=== PATIENT | female | born 1945 | race Two or more races ===

== ENCOUNTER 2018-07-04 09:17 | Outpatient (CLI) | payer MEDICARE, MEDICAID ==
[~2018-07-04] VITALS: Ht 144.8 cm; Wt 64.4 kg
[2018-07-04 09:48] VITALS: BP 129/63
--- NOTE | 2018-07-04 16:30 | Consultation ---
DATE OF CONSULTATION: 07/04/2018 CONSULTING PHYSICIAN: Cl Fernandez M.D. REFERRING PHYSICIAN: Terry Mendez M.D. CHIEF COMPLAINT: Screening colonoscopy and chronic GERD. HISTORY OF PRESENT ILLNESS: This is a pleasant 73-year-old female, who was referred to us for evaluation of chronic GERD and screening colonoscopy. At this time, the patient is asymptomatic except for GERD. PAST MEDICAL HISTORY: 1. Hypercholesterolemia. 2. GERD. 3. Hypertension. 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 MEDICATIONS: She is on omeprazole, metoprolol, and amlodipine. ALLERGIES: She has allergy to cholesterol medication. It gave her some rash, but she does not remember what the name of the medication. FAMILY HISTORY: No family history of GI malignancies. SOCIAL HISTORY: The patient denies any tobacco, alcohol, or illicit drug abuse. PHYSICAL EXAMINATION: VITAL SIGNS: Temperature 97, pulse is 86, and respiration is 20. HEENT: Normocephalic and atraumatic. Sclerae anicteric. NECK: Supple. No obvious evidence of lymphadenopathy. CARDIOVASCULAR: Regular rate. Plus S1 and S2. LUNGS: Clear to auscultation bilaterally. ABDOMEN: Positive bowel sounds. Soft and nontender. No rebound. No guarding. No peritoneal sign. EXTREMITIES: No cyanosis, no clubbing, and no edema. ASSESSMENT AND PLAN: This is a pleasant 73-year-old female, need screening colonoscopy evaluation. Also, the patient has chronic GERD, on PPI, which needed endoscopy evaluation. The risks and benefits of the procedure was explained to the patient, she understood. She was given instruction and prescription for colonoscopy prep. The patient is scheduled for 07/17/2018 at 7 a.m. at [facility]. I want to thank, Dr. Mendez, for this kind referral. Cl Fernandez M.D. DR: DAVID JOB#: [id number] CC: Terry Mendez M.D.; Fax#: [phone]
[2018-07-05] MEDS ORDERED: OMEPRAZOLE40 M1 ORAL (08:22)
[2018-07-05] MEDS ORDERED: cholesterol med (08:22)
[2018-07-05] MEDS ORDERED: AMLODIPINE BESYL5 MG ORAL (08:22)
[2018-07-05] MEDS ORDERED: METOPROLOL SUCC50 MG ORAL (08:22)
== END 2018-07-04 11:17 | disposition home or self-care (01) ==
LOC: PAN 09:17
DX: K21.9 Gastro-esophageal reflux disease without esophagitis (principal); E78.00 Pure hypercholesterolemia, unspecified; I10 Essential (primary) hypertension

== ENCOUNTER 2018-07-17 08:10 | Day surgery (SDC) | payer MEDICARE, MEDICAID ==
[~2018-07-17] VITALS: Ht 147.3 cm; Wt 63.5 kg
[2018-07-17] VITALS (9 sets, daily range): BP systolic 114–146; BP diastolic 54–86
[~2018-07-17 08:10] MED LIST: AMLODIPINE BESYL5 MG ORAL; LR 1000ml ONE; Lidocaine 1% MPF 10mg/ml 5ml ONE; METOPROLOL SUCC50 MG ORAL; OMEPRAZOLE40 M1 ORAL; Propofol 200mg/20ml IV ONE; cholesterol med
--- NOTE | 2018-07-17 08:45 | Anethesia Preoperative Eval ---
Anesthesia Pre-op PMH/ROS General Date of Evaluation: Jul 17, 2018 Anesthesiologist: Anderson ASA Score: ASA 2 Mallampati Score Class I : Soft palate, uvula, fauces, pillars visible Class II: Soft palate, uvula, fauces visible Class III: Soft palate, base of uvula visible Class IV: Only hard plate visible Mallampati Classification: Class II Surgeon: Rebecca Diagnosis: GERD Surgical Procedure: EGD and colonoscopy Anesthesia History: none Family History: no anesthesia problems Allergies: Coded Allergies: ATORVASTATIN (Verified Allergy, Severe, rash , 07/17/18) Medications: see eMAR Patient NPO?: Yes NPO Date: Jul 16, 2018 NPO Time: 21:00 Past Medical History Cardiovascular: Reports: HTN, other - HLD; Denies: CAD, MD, valve dz, arrhythmia Pulmonary: Denies: asthma, COPD, RUDY, other Gastrointestinal/Genitourinary: Reports: GERD; Denies: CRI, ESRD, other Neurologic/Psychiatric: Denies: dementia, CVA, depression/anxiety, TIA, other Endocrine: Denies: DM, hypothyroidism, steroids, other HEENT: Denies: cataract (L), cataract (R), glaucoma, [place] IRA (L), [place] IRA (R), other Hematology/Immune: Denies: anemia, DVT, bleeding disorder, other Musculoskeletal/Integumentary: Denies: OA, RA, DJD, DDD, edema, other PSxH Narrative: Bilateral IHR Anesthesia Pre-op Phys. Exam Physician Exam Last Vital Signs Date Time Temp Pulse Resp B/P (MAP) Pulse Ox O2 Delivery O2 Flow Rate FiO2 07/17/18 08:36 97.6 70 18 146/67 97 Room Air Constitutional: NAD Cardiovascular: RRR Respiratory: CTA Airway Exam Mallampati Score: Class II MO: limited ROM: limited Anesthesia Pre-op A/P Labs see chart Studies Pre-op Studies: EKG - sr Risk Assessment & Plan Assessment: ASA II Plan: MAC Status Change Before Surgery: No Pre-Antibiotics Drug: N/A Lakesha Chaidez MD Jul 17, 2018 08:45
[2018-07-17] MEDS ORDERED: LR 1000ml 1,000 ML IVLG SCH (08:46)
[2018-07-17] MEDS ORDERED: TRIAMTERENE-HC1 EAC7 ORAL (08:49)
[2018-07-17] MEDS ORDERED: METOPROLOL TART25 MG ORAL (08:49)
[2018-07-17] MEDS ORDERED: GINKGO BILOBA60 M1 PO (08:49)
[2018-07-17] MEDS ORDERED: ASPIR 8181 MG ORAL (08:49)
[2018-07-17] MEDS ORDERED: KLOR-CON 1010 MEQ ORAL (08:49)
[2018-07-17] MEDS ORDERED: VITAMIN D400 INTLU ORAL (08:49)
[2018-07-17] MEDS ORDERED: DiphenhydrAMINE 50mg/ml Inj IVP PRN (09:00)
[2018-07-17] MEDS ORDERED: LORazepam Inj 2mg/ml 1ml IV PRN (09:00)
--- NOTE | 2018-07-17 09:01 | Pre-Procedure Note/Attestation ---
Pre-Procedure Note/Attestation Complete Prior to Procedure Planned Procedure: not applicable Procedure Narrative: esophagogastroduodenoscopy and colonoscopy Indications for Procedure Pre-Operative Diagnosis: screening colon, GERD Attestation I attest that I discussed the nature of the procedure; its benefits; risks and complications; and alternatives (and the risks and benefits of such alternatives ), prior to the procedure, with the patient (or the patient's legal customer contact representative). I attest that, if there was a reasonable possibility of needing a blood transfusion, the patient (or the patient's legal customer contact representative) was given the [facility] standardized written summary, pursuant to the Rubin Caspian Blood Safety Act ([place] Health and Safety Code # 1645, as amended). I attest that I re-evaluated the patient just prior to the surgery and that there has been no change in the patient's H&P, except as documented below: Cl Fernandez MD Jul 17, 2018 09:01
--- NOTE | 2018-07-17 09:01 | Short Stay Surgery H&P ---
History of Present Illness History of Present Illness Chief Complaint see recent office note HPI Dalila Boyle is a 73 year old female who was admitted on for GERD Patient History Allergies: Coded Allergies: ATORVASTATIN (Verified Allergy, Severe, rash , 07/17/18) Medication History Scheduled Amlodipine Besylate* (Amlodipine Besylate*), 10 MG ORAL DAILY, (Reported) Aspirin* (Aspir 81*), 81 MG ORAL DAILY, (Reported) Ginkgo Biloba (Ginkgo Biloba), 60 MG PO DAILY, (Reported) Metoprolol Succinate* (Metoprolol Succinate*), Unknown Dose ORAL DAILY, ( Reported) Metoprolol Tartrate* (Metoprolol Tartrate*), 25 MG ORAL DAILY, (Reported) Omeprazole (Omeprazole), 20 MG ORAL DAILY, (Reported) Potassium Chloride (Klor-Con 10), 10 MEQ ORAL DAILY, (Reported) Triamterene/Hydrochlorothiazid (Triamterene-Hctz 37.5-25 Mg Cp), 1 CAP ORAL DAILY, (Reported) Vitamin D (Vitamin D3), 1,000 UNITS ORAL DAILY, (Reported) Physical Exam Vital Signs Last Vital Signs Date Time Temp Pulse Resp B/P (MAP) Pulse Ox O2 Delivery O2 Flow Rate FiO2 07/17/18 08:51 Room Air 07/17/18 08:36 97.6 70 18 146/67 97 Plan Attestation Are the patient's medical conditions optimized for surgery? Cl Fernandez MD Jul 17, 2018 09:01
--- NOTE | 2018-07-17 09:36 | Endoscopy Procedure Note ---
Endoscopy Procedure Note General Indication for Procedure: screening colon, GERD Procedures Performed: EGD, colonoscopy Operative Findings/Diagnosis: gastritis, 2 polyps Specimen: yes Pt Tolerated Procedure Well: Yes Estimated Blood Loss: none Anesthesia Anesthesiologist: kelly Anesthesia: MAC Inserted Devices Implant(s) used?: No Quality Quality of Bowel Preparation: Good Did scope reach the cecum?: Yes Was there any complications?: No GI Core Measures 50 yrs or older w/o bx or poly: No 10yrs. F/U not recommended: Yes If not recommended, why?: Above average risk 10 yrs. F/U needed: Yes 18 years or older w/prev. colo: No Cl Fernandez MD Jul 17, 2018 09:36
--- NOTE | 2018-07-17 09:43 | Immediate Post-Op Evaluation ---
Immediate Post-Op Evalulation Immediate Post-Op Evalulation Procedure: EGD and colonoscopy Date of Evaluation: Jul 17, 2018 Time of Evaluation: 09:45 IV Fluids: 300 Blood Products: 0 Estimated Blood Loss: 0 Urinary Output: 0 Blood Pressure Systolic: 117 Blood Pressure Diastolic: 58 Pulse Rate: 68 Respiratory Rate: 12 O2 Sat by Pulse Oximetry: 97 Temperature (Fahrenheit): 97.2 Pain Score (1-10): 0 Nausea: No Vomiting: No Complications 0 Patient Status: awake, reacts, patent, none Hydration Status: adequate Drug: N/A Lakesha Chaidez MD Jul 17, 2018 09:43
--- NOTE | 2018-07-17 09:44 | 48 Hour Post Anesthesia Eval ---
Post Anesthesia Evaluation Procedure: EGD and colonoscopy Date of Evaluation: Jul 17, 2018 Airway: patent Nausea: No Vomiting: No Pain Intensity: 0 Hydration Status: adequate Cardiopulmonary Status: at baseline Mental Status/LOC: patient returned to baseline Post-Anesthesia Complications: 0 Follow-up care needed: ready to discharge Lakesha Chaidez MD Jul 17, 2018 09:44
--- NOTE | 2018-07-17 16:45 | Procedure Note ---
DATE OF PROCEDURE: 07/17/2018 SURGEON: Cl Fernandez M.D. PROCEDURE: Upper endoscopy with biopsy and colonoscopy with biopsy. ANESTHESIA: Per Dr. Barron. INSTRUMENT: Olympus adult flexible upper endoscope and colonoscope. INDICATION: Screening colonoscopy evaluation, abdominal pain, chronic GERD. REASON FOR PROCEDURE: The procedure, risks, benefits, and possible consequences, including hemorrhage, aspiration, perforation and infection, and alternative treatments, were explained to the patient/legal guardian by Dr. Cl Fernandez and the patient/legal guardian understood and accepted these risks. PROCEDURE IN DETAIL: After informed consent was obtained and the patient was adequately sedated, Olympus upper endoscope was advanced from the mouth to the second portion of the duodenum and retroflexion was performed in the stomach. The patient had evidence of 3-cm hiatal hernia with mildly irregular Z-line without any obvious esophagitis. In the stomach, there was diffuse gastritis. Random biopsy from antrum and body was obtained to rule out H. pylori infection. At this time, the upper endoscope was retrieved and the patient was turned over for colonoscopy. First, rectal exam was performed, which was positive for internal hemorrhoids. Then, the scope was advanced from rectum into the cecum documented by appendiceal orifice, ileocecal valve, and right upper quadrant palpation. Quality of prep was good. The patient has evidence of diverticulosis both in the right and left colon. There were two polyps one in the ascending colon, one in the rectum. Both removed with the cold biopsy forceps technique. Retroflexion of rectum showed evidence of medium-sized nonbleeding internal hemorrhoids. SUMMARY OF FINDINGS: 1. A 3-cm hiatal hernia. 2. Irregular Z-line. 3. Gastritis, status post biopsy. 4. Internal hemorrhoids. 5. Two polyps removed, see above for details. 6. Diverticulosis both in the right and left colon. RECOMMENDATIONS: 1. Follow up biopsy results and treat accordingly. 2. We will recommend repeat colonoscopy in five years. Cl Fernandez M.D. DR: KATERYNA JOB#: [id number] CC:
--- NOTE | 2018-07-20 18:11 | Cardiology Report ---
APPROVED REPORT EKG Measurement Heart [id number] Normal sinus rhythm Left bundle branch block Abnormal ECG
== END 2018-07-17 10:55 | disposition home or self-care (01) ==
LOC: GAS 08:10
DX: Z12.11 Encounter for screening for malignant neoplasm of colon (principal); R10.9 Unspecified abdominal pain; K21.9 Gastro-esophageal reflux disease without esophagitis; K44.9 Diaphragmatic hernia without obstruction or gangrene; K29.70 Gastritis, unspecified, without bleeding; K64.8 Other hemorrhoids; K57.90 Diverticulosis of intestine, part unspecified, without perforation or abscess without bleeding; K63.5 Polyp of colon; Z79.82 Long term (current) use of aspirin; I10 Essential (primary) hypertension; E78.5 Hyperlipidemia, unspecified; Z88.8 Allergy status to other drugs, medicaments and biological substances; D12.2 Benign neoplasm of ascending colon
CPT/HCPCS: 43239; 45380; 93005; J2704; 94003; 94150